=== PATIENT | female | born 1985 | race Caucasian/White ===

== ENCOUNTER 2023-04-25 14:31 | Emergency (ER) | payer OTHER ==
[~2023-04-25] VITALS: Ht 165.1 cm; Wt 97.5 kg
[~2023-04-25 14:31] MED LIST: VIC PO
[2023-04-25 14:37] VITALS: BP 114/69; PULSE 82; RESP 17; TEMP 98.2; O2SAT 97
[2023-04-25] MEDS ORDERED: ACETAMINOPHEN EXTRA STRENGTH 500 MG TAB PO ONE (14:55)
[2023-04-25] MEDS ORDERED: IBUPROFEN 600 MG TAB PO ONE (14:55)
[2023-04-25] MEDS ORDERED: ACET-8905 PO (15:50)
[2023-04-25] MEDS ORDERED: IBUP-2213 PO (15:50)
== END 2023-04-25 16:33 | disposition home or self-care (01) ==
LOC: MED 14:31
DX: S91.032A Puncture wound without foreign body, left ankle, initial encounter (principal); W18.30XA Fall on same level, unspecified, initial encounter; Y93.89 Activity, other specified; Y92.89 Other specified places as the place of occurrence of the external cause; Y99.8 Other external cause status
CPT/HCPCS: 29515; 73610; 99283

== ENCOUNTER 2023-10-01 10:32 | Emergency (ER) | payer OTHER ==
[~2023-10-01] VITALS: Ht 165.1 cm; Wt 108.0 kg
[~2023-10-01 10:32] MED LIST changes: +ACET-8905 PO; +IBUP-2213 PO
[2023-10-01 11:14] VITALS: BP 122/85; PULSE 68; RESP 16; TEMP 98.5; O2SAT 96
[2023-10-01 12:01] VITALS: BP 110/65; PULSE 62; TEMP 98.2; O2SAT 98
[2023-10-01] MEDS: ACETAMINOPHEN EXTRA STRENGTH 500 MG TAB PO ONE (12:30)
[2023-10-01 13:03] LABS: FLU A ANTIGEN negative (NEGATIVE); FLU B ANTIGEN negative (NEGATIVE)
[2023-10-01] MEDS ORDERED: BENZ200C4 PO (13:24)
[2023-10-01] MEDS ORDERED: IBUP-2213 PO (13:24)
[2023-10-01] MEDS ORDERED: ACET-10509 PO (13:24)
== END 2023-10-01 13:40 | disposition home or self-care (01) ==
LOC: MED 10:32
DX: J06.9 Acute upper respiratory infection, unspecified (principal); Z20.822 Contact with and (suspected) exposure to COVID-19; J45.909 Unspecified asthma, uncomplicated; Z79.899 Other long term (current) drug therapy
CPT/HCPCS: 71046; 99284

== ENCOUNTER 2024-04-25 00:26 | Inpatient (IN) | payer OTHER ==
[~2024-04-25] VITALS: Ht 165.1 cm; Wt 99.8 kg
[~2024-04-25 00:26] MED LIST changes: +ACET500T99 PO; +BENZ200C4 PO
[2024-04-25 00:55] VITALS: BP 128/82; PULSE 71; RESP 20; TEMP 98.1; O2SAT 97
[2024-04-25] MEDS: ONDANSETRON 4 MG/2 ML VIAL IVP ONE (02:08)
[2024-04-25] MEDS: NACL 0.9% 1,000 ML IV ONE (02:09)
[2024-04-25] MEDS: MORPHINE SULFATE 4 MG/ML SYR IVP ONE (02:09)
[2024-04-25 02:10] LABS: APPEARANCE,URINE CLEAR (CLEAR); BILIRUBIN,URINE NEGATIVE (NEGATIVE); BLOOD, URINE NEGATIVE (NEGATIVE); COLOR,URINE YELLOW (YELLOW); LEUKOCYTE ESTERASE ,URINE NEGATIVE (NEGATIVE); NITRITE, URINE NEGATIVE (NEGATIVE); PH,URINE 6.5 (5.0-9.0); PROTEIN,URINE NEGATIVE (NEGATIVE); UGLUCOSE NEGATIVE (NEGATIVE); UROBILINOGEN,URINE 0.2 EU/dL (0.2 - 1)
[2024-04-25 02:19] LABS: BASOPHILS # (AUTO) 0.1 K/uL (0.00-0.22); BASOPHILS % (AUTO) 0.9 % (0.0-2.0); EOSINOPHILS # (AUTO) 0.5 K/uL (0-0.4); HEMOGLOBIN 11.1 g/dL (12.0-16.0); LYMPHOCYTES # (AUTO) 2.4 K/uL (2.5-16.5); LYMPHOCYTES % (AUTO) 26.6 % (20.5-51.1); MEAN CORPUSCULAR HEMOGLOBIN 30 pg (27-31); MEAN CORPUSCULAR HGB CONC 33 g/dL (33-37); MEAN CORPUSCULAR VOLUME 90.6 fL (80-94); MONOCYTES # (AUTO) 0.9 K/uL (0.8-1.0); MONOCYTES % (AUTO) 9.8 % (1.7-9.3); NEUTROPHILS # (AUTO) 5.2 K/uL (1.8-7.7); NEUTROPHILS % (AUTO) 57.7 % (42.2-75.2); PLATELET COUNT (AUTO) 283 K/uL (140-450); RED BLOOD CELL COUNT(AUTO) 3.76 MIL/uL (4.20-5.40); RED CELL DISTRIBUTION WIDTH 15.9 % (11.6-13.7)
[2024-04-25 02:34] LABS: ANION GAP 10.6 (8-16); CALCIUM 9.8 mg/dL (8.5-10.1); CARBON DIOXIDE 28.9 mmol/L (21-32); CREATININE 0.7 mg/dL (0.6-1.3); POTASSIUM 3.5 mmol/L (3.5-5.1)
[2024-04-25 02:51] LABS: ALBUMIN 3.3 g/dL (3.4-5.0); TOTAL BILIRUBIN 0.3 mg/dL (0.0-1.0); TOTAL PROTEIN, SERUM 7.7 g/dL (6.4-8.2)
[2024-04-25] MEDS ORDERED: ONDANSETRON 4 MG/2 ML VIAL IVP PRN (06:50)
[2024-04-25] MEDS: LACTATED RINGERS 1,000 ML IV SCH (06:59)
[2024-04-25] MEDS: HYDROmorphone 1 MG/ML AMP IVP PRN ×2 (07:00→14:29)
[2024-04-25 09:00] VITALS: PULSE 86; RESP 18; O2SAT 99
[2024-04-25] MEDS: MEDS-TO-BEDS MC SCH (09:00)
[2024-04-25] MEDS: MORPHINE SULFATE 2 MG/ML SYR IVP PRN (10:29)
[2024-04-25 16:00] VITALS: BP 121/79; PULSE 86; RESP 18; TEMP 98.2; O2SAT 99
[2024-04-25 20:00] VITALS: BP 118/74; PULSE 58; RESP 18; TEMP 97.6; O2SAT 97
[2024-04-26 04:00] VITALS: BP 104/56; PULSE 58; RESP 18; TEMP 97.5; O2SAT 96
[2024-04-26 05:45] LABS: BASOPHILS # (AUTO) 0.1 K/uL (0.00-0.22); BASOPHILS % (AUTO) 1.1 % (0.0-2.0); EOSINOPHILS # (AUTO) 0.4 K/uL (0-0.4); EOSINOPHILS % (AUTO) 6.5 % (0.0-4.0); HEMATOCRIT 30.3 % (36-48); LYMPHOCYTES # (AUTO) 2.3 K/uL (2.5-16.5); LYMPHOCYTES % (AUTO) 36.2 % (20.5-51.1); MEAN CORPUSCULAR HEMOGLOBIN 30 pg (27-31); MEAN CORPUSCULAR HGB CONC 33 g/dL (33-37); MEAN CORPUSCULAR VOLUME 90.9 fL (80-94); MONOCYTES # (AUTO) 0.4 K/uL (0.8-1.0); NEUTROPHILS # (AUTO) 3.1 K/uL (1.8-7.7); NEUTROPHILS % (AUTO) 49.2 % (42.2-75.2); PLATELET COUNT (AUTO) 257 K/uL (140-450); RED BLOOD CELL COUNT(AUTO) 3.34 MIL/uL (4.20-5.40); RED CELL DISTRIBUTION WIDTH 15.1 % (11.6-13.7); WHITE BLOOD COUNT (AUTO) 6.2 K/uL (4.8-10.8)
[2024-04-26 07:36] LABS: ALBUMIN 2.9 g/dL (3.4-5.0); ANION GAP 11.4 (8-16); CALCIUM 8.5 mg/dL (8.5-10.1); CARBON DIOXIDE 28.6 mmol/L (21-32); CREATININE 0.8 mg/dL (0.6-1.3); MAGNESIUM 1.7 mg/dL (1.8-2.4); TOTAL BILIRUBIN 0.3 mg/dL (0.0-1.0); TOTAL PROTEIN, SERUM 6.5 g/dL (6.4-8.2)
[2024-04-26 08:00] VITALS: BP 103/54; PULSE 57; RESP 18; TEMP 97.3; O2SAT 97
[2024-04-26] MEDS: LIDOCAINE/EPI 1% 1:100000 20 ML VIAL INJ ONE (09:26)
[2024-04-26] MEDS: ceFAZolin 2,000 MG VIAL ONE (09:26)
[2024-04-26] MEDS: BUPIVACAINE-MPF 0.25% 30 ML VIAL INJ ONE (09:27)
[2024-04-26] MEDS ORDERED: SEVOFLURANE 250 ML BTL INH ONE (10:00)
[2024-04-26] MEDS: ROCURONIUM 50 MG/5 ML VIAL IV ONE ×4 (10:34→10:35)
[2024-04-26] MEDS: LIDOCAINE 2% 100 MG/5 ML SYR IVP ONE (10:34)
[2024-04-26] MEDS: PROPOFOL 200 MG/20 ML VIAL IV ONE (10:34)
[2024-04-26] MEDS: HYDROmorphone PFS 2 MG/ML SYR ONE ×2 (10:34→10:59)
[2024-04-26] MEDS: ePHEDrine 50 MG/ML VIAL ONE (10:35)
[2024-04-26] MEDS: SUCCINYLCHOLINE CHLORIDE 200 MG/10 ML VIAL IVP ONE (10:35)
[2024-04-26] MEDS: GLYCOPYRROLATE 0.2 MG/ML VIAL ONE ×2 (10:47)
[2024-04-26] MEDS: NEOSTIGMINE 1:1000 10 MG/10 ML VIAL ONE (10:47)
[2024-04-26] MEDS: METOCLOPRAMIDE 10 MG/2 ML INJ VIAL ONE (10:47)
[2024-04-26] MEDS: ONDANSETRON 4 MG/2 ML VIAL ONE (10:47)
[2024-04-26] MEDS: DEXAMETHASONE 4 MG/ML VIAL ONE (10:47)
[2024-04-26] MEDS ORDERED: ONDANSETRON 4 MG/2 ML VIAL IVP PRN (11:00)
[2024-04-26] MEDS ORDERED: MEPERIDINE 25 MG/ML SYR IVP PRN (11:00)
[2024-04-26] MEDS: HYDROmorphone 1 MG/ML AMP IVP PRN (11:00)
[2024-04-26] MEDS ORDERED: ACET-9527 PO (11:11)
[2024-04-26 11:55] VITALS: BP 117/71; PULSE 63; RESP 18; TEMP 96.8; O2SAT 95
[2024-04-26 15:07] VITALS: BP 101/63; PULSE 59; RESP 18; TEMP 97; O2SAT 97
[2024-04-26 18:30] VITALS: BP 102/70; PULSE 63; RESP 18; TEMP 98; O2SAT 94
[2024-04-26 20:00] VITALS: PULSE 74; RESP 18; O2SAT 96
[2024-04-26] MEDS: HYDROcodone/APAP 5/325 MG 1 TAB TAB PO PRN (20:13)
[2024-04-27] MEDS: ACETAMINOPHEN 325 MG TAB PO PRN (00:31)
[2024-04-27 04:00] VITALS: BP 106/61; PULSE 67; RESP 18; TEMP 97.8; O2SAT 99
[2024-04-27 06:23] LABS: BASOPHILS # (AUTO) 0.1 K/uL (0.00-0.22); BASOPHILS % (AUTO) 0.6 % (0.0-2.0); EOSINOPHILS % (AUTO) 0.3 % (0.0-4.0); HEMATOCRIT 29.2 % (36-48); HEMOGLOBIN 9.7 g/dL (12.0-16.0); LYMPHOCYTES # (AUTO) 1.8 K/uL (2.5-16.5); LYMPHOCYTES % (AUTO) 19.5 % (20.5-51.1); MEAN CORPUSCULAR HEMOGLOBIN 30 pg (27-31); MEAN CORPUSCULAR HGB CONC 33 g/dL (33-37); MEAN CORPUSCULAR VOLUME 90.7 fL (80-94); MONOCYTES # (AUTO) 0.7 K/uL (0.8-1.0); MONOCYTES % (AUTO) 8.2 % (1.7-9.3); NEUTROPHILS # (AUTO) 6.4 K/uL (1.8-7.7); NEUTROPHILS % (AUTO) 71.4 % (42.2-75.2); PLATELET COUNT (AUTO) 261 K/uL (140-450); RED BLOOD CELL COUNT(AUTO) 3.22 MIL/uL (4.20-5.40); RED CELL DISTRIBUTION WIDTH 15.4 % (11.6-13.7)
[2024-04-27 06:32] LABS: ANION GAP 9.3 (8-16); CALCIUM 8.9 mg/dL (8.5-10.1); CARBON DIOXIDE 30.3 mmol/L (21-32); CREATININE 0.7 mg/dL (0.6-1.3); POTASSIUM 3.6 mmol/L (3.5-5.1)
[2024-04-27 16:04] VITALS: BP 115/55; PULSE 59; RESP 16; TEMP 98.2
== END 2024-04-27 17:15 | disposition home or self-care (01) | DRG 228 ==
LOC: MED 00:26 → MTU 06:49 → MMU 08:00
PROVIDERS: ADMIT Hospitalist; ATTEND Hospitalist
PROC: 0WUF4JZ Supplement Abdominal Wall with Synthetic Substitute, Percutaneous Endoscopic Approach (ICD-10-PCS; principal; 2024-04-26 10:00)
DX: K42.9 Umbilical hernia without obstruction or gangrene (principal); E44.1 Mild protein-calorie malnutrition; D62 Acute posthemorrhagic anemia; E66.9 Obesity, unspecified; K76.0 Fatty (change of) liver, not elsewhere classified; J45.909 Unspecified asthma, uncomplicated; Z79.899 Other long term (current) drug therapy; Z68.36 Body mass index [BMI] 36.0-36.9, adult
CPT/HCPCS: 36415; 71045; 80048; 80053; 80076; 81003; 83735; 85025; 85730; 87081; 93005; 96361; 96374; 96375; 99285; C1781; J0330; J1100; J1170; J2001; J2270; J2405; J2704; J2710; J2765; J3490